=== PATIENT | male | born 1950 | race Caucasian/White ===

== ENCOUNTER → 2018-12-05 | Day surgery (SDC) | payer OTHER ==
[~2018-12-05] MED LIST: LIDOCAINE 1% MPF 5 ML VIAL ONE; PROPOFOL 200 MG/20 ML VIAL IV ONE; Ringers Lactate 1,000 ML IV ONE
--- OUTSIDE RECORDS SUMMARY | 2018-12-05 07:53 | XMS REPORT ---
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
--- OUTSIDE RECORDS SUMMARY | 2018-12-05 07:53 | XMS REPORT ---
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 Problem Gastroesophageal reflux disease K21.9 Active without esophagitis Medications Medication Code Code Instructions Start End Date Status Dosage System Date Lisinopril [facility] 04530584431 10MG Orally Once Active take 1 a day tablet daily Bactrim DS [facility] 06346057125 800-160 MG Aug 14, Aug 17, Active 1 tablet Orally Twice a 2017 2017 day Ciprodex [facility] 11849948590 0.3-0.1 % Otic April 29, Active 4 drops into Twice a day 2018 affected ear Results No Known Results Summary Purpose eClinicalWorks Submission
--- OUTSIDE RECORDS SUMMARY | 2018-12-05 07:53 | XMS REPORT ---
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
--- OUTSIDE RECORDS SUMMARY | 2018-12-05 07:53 | XMS REPORT ---
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 Problem Gastroesophageal reflux disease K21.9 Active without esophagitis Problem Essential (primary) hypertension I10 Active Assessment Gastroesophageal reflux disease K21.9 Active without esophagitis Assessment Encounter for general adult medical Z00.00 Active examination without abnormal findings Problem Benign prostatic hyperplasia with N40.1 Active lower urinary tract symptoms Assessment Essential (primary) hypertension I10 Active Medications Medication Code System Code Instructions Start End Date Status Dosage Date Lisinopril [facility] 05713544683 10MG Orally Once Active take 1 a day tablet daily Flomax [place] 07691041221 0.4 MG Orally January 20, Jul 19, Active 1 capsule Once a day 2017 2017 Results Name Result Date Reference Range Unit Abnormality Flag CBC (only/No Diff) CMP Lipid Profile TSH Summary Purpose eClinicalWorks Submission
--- OUTSIDE RECORDS SUMMARY | 2018-12-05 07:53 | XMS REPORT ---
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
--- OUTSIDE RECORDS SUMMARY | 2018-12-05 07:53 | XMS REPORT ---
:1950 Author Organization eClinicalWorks Care Team Providers Name Role Phone Wes Mcadams Provider Role Unavailable Allergies, Adverse Reactions, Alerts Substance Reaction Event Type N.K.D.A. 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
--- OUTSIDE RECORDS SUMMARY | 2018-12-05 07:53 | XMS REPORT ---
:1950 Author Organization eClinicalWorks Care Team Providers Name Role Phone Jeferson Escobar Provider Role Unavailable Allergies, Adverse Reactions, Alerts Substance Reaction Event Type N.K.D.A. 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 Problem Gastroesophageal reflux disease K21.9 Active without esophagitis Medications Medication Code Code Instructions Start End Date Status Dosage System Date Lisinopril [facility] 24848242953 5 MG Orally Once Active take 1 a day tablet daily Ciprodex [facility] 19477837279 0.3-0.1 % Otic April 29, Active 4 drops into Twice a day 2018 affected ear Lisinopril [facility] 38726574803 10MG Orally Once Active take 1 a day tablet daily Results No Known Results Summary Purpose eClinicalWorks Submission
--- OUTSIDE RECORDS SUMMARY | 2018-12-05 07:53 | XMS REPORT ---
:1950 Author Organization eClinicalWorks Care Team Providers Name Role Phone Wes Mcadams Provider Role Unavailable Allergies, Adverse Reactions, Alerts Substance Reaction Event Type N.K.D.A. 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 Problem Gastroesophageal reflux disease K21.9 Active without esophagitis Problem Essential (primary) hypertension I10 Active Assessment Gastroesophageal reflux disease K21.9 Active without esophagitis Assessment Benign prostatic hyperplasia with N40.1 Active lower urinary tract symptoms Problem Benign prostatic hyperplasia with N40.1 Active lower urinary tract symptoms Assessment Essential (primary) hypertension I10 Active Medications Medication Code System Code Instructions Start End Date Status Dosage Date Flomax [facility] 28398699536 0.4 MG Orally January 20, Jul 19, Active 1 capsule Once a day 2017 2017 Lisinopril [facility] 88147909009 10MG Orally Once Active take 1 a day tablet daily Results No Known Results Summary Purpose eClinicalWorks Submission
--- OUTSIDE RECORDS SUMMARY | 2018-12-05 07:53 | XMS REPORT ---
:1950 Author Organization eClinicalWorks Care Team Providers Name Role Phone Wes Mcadams Provider Role Unavailable Allergies No Known Allergies Problems Problem Type Condition Code Onset Dates Condition Status Assessment Prostatitis, acute N41.0 Active Assessment Essential (primary) hypertension I10 Active Problem Tinnitus [...] End Date Status Dosage System Date Lisinopril [facility] 73522826392 10MG Orally Once Active take 1 a day tablet daily Urimar-T [facility] 89010789958 120 MG Orally Nov 07, Nov 17, Active 1 tablet Four times a day 2018 2018 Ciprodex [facility] 91329191836 0.3-0.1 % Otic April 29, Active 4 drops into Twice a day 2018 affected ear Cipro [facility] 78081176805 500 MG Orally Nov 07, Nov 17, Active 1 tablet every 12 hrs 2018 2018 Lisinopril [facility] 63804346338 5 MG Orally Once Active take 1 a day tablet daily Results No Known Results Summary Purpose eClinicalWorks Submission
--- OUTSIDE RECORDS SUMMARY | 2018-12-05 07:53 | XMS REPORT ---
:1950 Author Organization eClinicalWorks Care Team Providers Name Role Phone Wes Mcadams Provider Role Unavailable Allergies, Adverse Reactions, Alerts Substance Reaction Event Type N.K.D.A. 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 42247670524 200 MG Orally Aug 04Aug 10, Active 1 tablet Three times a 2017 2017 after day meals Nitrofurantoin ND 87793267096 100 MG Orally Aug 04, Aug 09, Active 1 capsule Macrocrystal bid 2017 2017 with food or milk Lisinopril [facility] 39259397338 10MG Orally Active take 1 Once a day tablet daily Ciprodex ND 26469000614 0.3-0.1 % Otic April 29, Active 4 drops Twice a day 2017 into affected ear Results No Known Results Summary Purpose eClinicalWorks Submission
--- NOTE | 2018-12-05 11:23 | ENDO RPT ---
[address], [address] COLONOSCOPY PROCEDURE REPORT EXAM DATE: 12/05/2018 PATIENT NAME: Brandon Gerene MR #: [id number] BIRTHDATE: 1950 ATTENDING: Jeferson Escobar DR STATUS: outpatient MACHINE DESIGNER: Violeta Estrella RN, Naveed Erwin [facility], and Rosie Cisneros INDICATIONS: The patient is a 68 yr old Male here for a colonoscopy due to colon cancer screening PROCEDURE PERFORMED: Colonoscopy with biopsy - cold polypectomy MEDICATIONS: Per Anesthesia. ESTIMATED BLOOD LOSS: None CONSENT: The patient understands the risks and benefits of the procedure and understands that these risks include, but are not limited to: sedation, allergic reaction, infection, perforation and/or bleeding. Alternative means of evaluation and treatment include, among others: physical exam, x-rays, and/or surgical intervention. The patient elects to proceed with this endoscopic procedure. DESCRIPTION OF PROCEDURE: During intra-op preparation period all mechanical medical equipment was checked for proper function. Hand hygiene and appropriate measures for infection prevention was taken. Procedure, possible complications, alternatives including, but not limited to possibility of bleeding, perforation, tear, infection, sepsis, need for surgery, need for blood transfusion, were explained to the patient. After the risks, benefits and alternatives of the procedure were thoroughly explained, Informed consent was verified, confirmed and timeout was successfully executed by the treatment team. The patient was placed in the left lateral position. A digital rectal exam was performed and revealed external hemorrhoids, A digital rectal exam was performed and revealed internal hemorrhoids, and A digital rectal exam was performed and revealed an enlarged prostate. After appropriate level of anesthesia, the scope was passed. The EC-[id number] ([id number]) endoscope was introduced through the anus and advanced to the cecum, which was identified by both the appendix and ileocecal valve. The quality of the prep was fair. The instrument was then slowly withdrawn as the colon was fully examined. Scope withdrawal time was 9 minutes. COLON FINDINGS: A small smooth and polypoid shaped semi-pedunculated polyp with a friable surface was found in the ascending colon. A polypectomy was performed with a cold snare. The resection was complete, the polyp tissue was completely retrieved and sent to histology. Large internal and external hemorrhoids were found. Moderate diverticulosis was noted in the sigmoid colon. No bleeding was noted from the diverticulosis. Retroflexed views revealed no abnormalities. The scope was then completely withdrawn from the patient and the procedure terminated. ADVERSE EVENTS: There were no complications. IMPRESSIONS: 1. Small semi-pedunculated polyp was found in the ascending colon; polypectomy was performed with a cold snare 2. Large internal and external hemorrhoids RECOMMENDATIONS: 1. avoid NSAIDS for 2 weeks 2. await biopsy results 3. follow-up: office 2 week(s) 4. yearly hemoccult starting in 4 years 5. hemorrhoidal hygiene 6. increase dietary water 7. low fiber / diverticular diet RECALL: Return in 5 year(s) for Colonoscopy, pending biopsy results. Pending Biopsy Jeferson Escobar DR eSigned: Jeferson Escobar DR 12/05/2018 10:34 AM cc: CPT CODES: ICD9 CODES: PATIENT NAME: Brandon Greene MR#: [id number]
== END ==
LOC: OR 07:50
PROVIDERS: ATTEND Surgery
PROC: 0DBK8ZX Excision of Ascending Colon, Via Natural or Artificial Opening Endoscopic, Diagnostic (ICD-10-PCS; principal; 2018-12-05 09:15)
DX: Z12.11 Encounter for screening for malignant neoplasm of colon (principal); D12.2 Benign neoplasm of ascending colon; K64.4 Residual hemorrhoidal skin tags; K64.8 Other hemorrhoids; K57.30 Diverticulosis of large intestine without perforation or abscess without bleeding; I10 Essential (primary) hypertension; N40.1 Benign prostatic hyperplasia with lower urinary tract symptoms; K21.9 Gastro-esophageal reflux disease without esophagitis; Z79.899 Other long term (current) drug therapy; Z87.891 Personal history of nicotine dependence
CPT/HCPCS: 88305; J2704